=== PATIENT | male | born 1985 | race Two or more races ===

== ENCOUNTER 2016-10-24 07:32 | Day surgery (SDC) | payer OTHER ==
[2016-10-24 08:49] VITALS: PULSE 80
[2016-10-24] MEDS ORDERED: LIDOCAINE 1% 2 ML INJ ID PRN (08:49)
[2016-10-24] MEDS ORDERED: LR 1,000 ML IV ONE (08:49)
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
[2016-10-24] MEDS ORDERED: IOTHALAMATE MEG (CONRAY) 50 ML VIAL IV ONE (09:43)
[2016-10-24] MEDS ORDERED: LIDOCAINE 2% 5 ML SDV ONE (09:51)
[2016-10-24] MEDS ORDERED: PROPOFOL/EMULSION 500 MG/50 ML BOTTLE IV ONE (09:51)
--- NOTE | 2016-10-24 10:02 | PDGENHP ---
History & Physical Chief Complaint: Pancreatitis, nausea, vomiting Relevant Physical Exam: GEN: NAD. Cardiac: RRR. Lungs: CTA B. Abd: Soft, nt, nd
[2016-10-24] MEDS ORDERED: MIDAZOLAM 2 MG/2 ML VIAL ONE (10:08)
[2016-10-24] MEDS ORDERED: NALOXONE HCL 0.4 MG/ML INJ IVP PRN (10:18)
[2016-10-24] MEDS ORDERED: PROPOFOL 200 MG/20 ML VIAL ONE ×2 (10:25→10:38)
[2016-10-24] MEDS ORDERED: GLYCOPYRROLATE 0.2 MG/1 ML VIAL ONE (10:37)
--- NOTE | 2016-10-24 10:49 | POSTOPPROG ---
Post Op Note Date of Operation: 10/24/16 Surgeon: Nilo Alvarez Pre-op Diagnosis: Nausea, vomiting, pancreatitis Post-op Diagnosis: Chronic pancreatitis Indication: Nausea, vomiting, abdominal pain Procedure: EGD with bx's, EUS Inf/Abcess present in the surg proc area at time of surgery?: No
[2016-10-24] MEDS ORDERED: fentaNYL 100 MCG/2 ML INJ IVP PRN (10:57)
[2016-10-24] MEDS ORDERED: ONDANSETRON 4 MG/2 ML VIAL IVP PRN (10:57)
--- NOTE | 2016-10-24 10:58 | POSTANESTH ---
Post Anesthetic Evaluation Cardiovascular Status: Normal, Stable Respiratory Status: Normal, Stable Level of Consciousness/Mental Status: Can Participate in Eval Pain Control: Adequate, Prn Tx Ordered Nausea/Vomiting Control: Adequate, Prn Tx Ordered
[2016-10-24 11:13] VITALS: TEMP 98.6
[2016-10-24 11:29] VITALS: RESP 19
--- NOTE | 2016-10-24 11:37 | GPN ---
[f rep st] PROCEDURE NOTE PREPROCEDURE DIAGNOSES: Nausea, vomiting, pancreatitis. POSTPROCEDURE DIAGNOSIS: Chronic pancreatitis. PROCEDURE: Esophagogastroduodenoscopy with biopsies, endoscopic ultrasound including the esophagus, stomach, and duodenum the second portion. COMPLICATIONS: None. MEDICATIONS: Monitored anesthesia care. BIOPSIES: Yes. BLOOD LOSS: Minimal. INDICATIONS: The patient is a 31-year-old gentleman with a history of nausea, vomiting, abdominal pain, insulin-dependent diabetes, who presents for evaluation of nausea, vomiting, and pancreatitis. The risks and benefits of the procedure were discussed with the patient. Consent obtained. Risks include but not limited to bleeding, perforation, risks related to sedation. The patient is ASA class 2. DESCRIPTION OF PROCEDURE: The end-viewing endoscope was inserted into the esophagus, into the stomach and second portion of the duodenum. The esophagus appeared normal. The Z-line was regular at 40 cm from the incisors. The stomach showed minimal nodularity on the gastric side of the GE junction on retroflexed views which was biopsied using cold biopsy forceps. The gastric antrum, body of the stomach, and lesser curvature were normal. Biopsies were taken with cold biopsy forceps to evaluate for Helicobacter pylori. The duodenum and second portion were normal. The ampulla appeared normal. Biopsies were taken using cold biopsy forceps to evaluate for celiac disease. Next, the curvilinear echoendoscope was inserted into the esophagus, into the stomach and second portion of the duodenum. The balloon was inflated. The pancreatic head, body, and tail were evaluated. There was lobularity with honeycombing as well as stranding throughout the pancreas. The pancreatic duct was not dilated. The hepatic bile duct was normal without evidence of choledocholithiasis. The gallbladder appeared normal. The liver appears fatty. No lymphadenopathy was seen. IMPRESSION: 1. Nodularity on the gastric side of the gastroesophageal junction, which was biopsied. 2. Findings consistent with chronic pancreatitis on endoscopic ultrasound. 3. No evidence of choledocholithiasis. 4. Normal gallbladder. No evidence of cholelithiasis. 5. Hepatic steatosis. RECOMMENDATIONS: 1. Check IgG 4 level for evaluation of autoimmune pancreatitis. 2. Low-fat meals. 3. Avoid alcohol. 4. Consider a trial of pancreatic enzymes. I will discuss this with him in Recovery. 5. Follow up in my GI clinic in 2 weeks. Thank you for allowing me to participate in the care of your patient. Please do not hesitate to call with questions. /[id number]/MODL MTDD
[2016-10-24 11:59] VITALS: BP 116/79; O2SAT 96
== END 2016-10-24 11:55 | disposition home or self-care (01) ==
LOC: FSGY 07:32
PROVIDERS: ATTEND Internal Medicine Gastroenterology
DX: K86.1 Other chronic pancreatitis (principal); K20.9 Esophagitis, unspecified; K76.0 Fatty (change of) liver, not elsewhere classified; E11.9 Type 2 diabetes mellitus without complications
CPT/HCPCS: J2250; J2704; Q9961